=== PATIENT | female | born 1945 | race Caucasian/White ===

== ENCOUNTER 2017-05-14 10:49 | Observation (INO) ==
[2017-05-14] MEDS ORDERED: Aspirin 81 MG TAB.CHEW PO STA (11:30)
--- NOTE | 2017-05-14 11:30 | Emergency Department Note ---
Disposition Clinical Impression: Chest pain Qualifiers: Chest pain type: unspecified Qualified Code(s): R07.9 - Chest pain, unspecified Disposition: Home, Self-Care Condition: Good Time of Disposition: 14:02 Chest Pain HPI - General Chief Complaint: ED Chest Pain Stated Complaint: chest pain Time Seen by Provider: 05/14/17 11:01 Source: patient Limitations: no limitations Vital Signs Reviewed: Yes Nursing Notes Reviewed: Yes - History of Present Illness HPI Narrative: 72-year-old female history of hypertension, hyperlipidemia, rheumatoid arthritis on Methotrexate and Steroids presents to the ED for chest pressure. This started while at rest 0 700 this morning. Located midsternum with radiation down the left arm. She denies any diaphoresis, nausea or vomiting. She is typically short breath denies any worsening. States she is had similar episodes in the past roughly 4 years ago or so where she was prescribed nitro in every time she had subsequent episodes they resolved. She denies any history of stent placement. At the moment patient reports resolution of all symptoms. States it lasted about an hour not have upon onset but she called her physician at [facility] and was told the company for further evaluation. She denies any other complaints such as fever, cough, rhinorrhea, abdominal pain, urinary symptoms. She has some baseline swelling in her legs but denies any increase or unilateral swelling. She makes frequent trips to [facility] as they evaluate her for her anemia and autoimmune disease. She denies any history of blood clots or cancer. Denies history of malignancy or recent surgery. She was recently hospitalized at the [facility] where she will be undergoing a liver biopsy this . Pt complaint: chest pain Severity scale (1-10): 0 - Related Data Home Medications Medication Instructions Recorded Confirmed Hydroxychloroquine [Plaquenuil] 200 mg PO BID 07/18/15 05/14/17 Multivitamin [Multivitamins] 1 tab PO DAILY 07/18/15 05/14/17 Ferrous Sulfate [Iron] 325 mg PO TID 12/14/16 05/14/17 Folic Acid 3 mg PO DAILY 12/14/16 05/14/17 Gabapentin [Neurontin] 600 mg PO BID 12/14/16 05/14/17 Lisinopril [Zestril] 5 mg PO DAILY 12/14/16 05/14/17 Aspirin [Lo-Dose Aspirin EC] 81 mg PO DAILY 12/26/16 05/14/17 Cyanocobalamin (Vitamin B-12) 1,000 mcg PO DAILY 12/26/16 05/14/17 [Vitamin B12] Simvastatin [Zocor] 40 mg PO HS 12/26/16 05/14/17 Acetaminophen [Tylenol] 650 mg PO Q6H PRN 05/14/17 05/14/17 Alendronate Sodium [Alendronate 70 mg PO QWEEK 05/14/17 05/14/17 Sodium] Atorvastatin [Lipitor] 40 mg PO DAILY 05/14/17 05/14/17 Docusate Sodium [Dok] 100 mg PO BID 05/14/17 05/14/17 Methotrexate [Otrexup] 15 mg PO QWEEK 05/14/17 05/14/17 PredniSONE [Deltasone] See Taper PO TAPER 05/14/17 05/14/17 Sennosides [Senna] 8.6 mg PO BID PRN 05/14/17 05/14/17 Tramadol HCl [Ultram] 50 mg PO Q8H PRN 05/14/17 05/14/17 Vitamin B Complex [B Complex] 1 tab PO DAILY 05/14/17 05/14/17 Allergies Allergy/AdvReac Type Severity Reaction Status Date / Time Sulfa (Sulfonamide AdvReac Rash Verified 05/14/17 13:19 Antibiotics) All systems ED: reviewed and negative except as stated. Review of Systems: As Per HPI Constitutional: Denies: fever, chills ENT ED: Denies: congestion, dysphagia Cardiovascular: Reports: chest pain. Denies: dyspnea on exertion Respiratory: Reports: dyspnea. Denies: cough, hemoptysis Gastrointestinal: Denies: abdominal pain, nausea, vomiting Genitourinary: Denies: urgency, dysuria Musculoskeletal: Denies: back pain, neck pain Integumentary: Denies: rash, abrasion, lesions Neurological: Denies: headache Psychiatric: Denies: anxiety, depression Chest Pain PMH - Past Medical History Medical history: Reports: hyperlipidemia, hypertension, RA, other Surgical history: Reports: cataract, knee replacement, orthopedic, other, other Psychiatric history: Reports: no psych history - Social History Smoking Status: Former smoker Alcohol use: Reports: none Drug use: Reports: none Physical Exam - General Limitations: no limitations General appearance: alert, in no apparent distress - Head Head exam: atraumatic, normocephalic, normal inspection - Eye Eye exam: Present: normal appearance, PERRL, EOMI - ENT ENT exam: normal exam, normal oropharynx, mucous membranes moist - Neck Neck exam: Present: normal inspection, full ROM, trachea midline - Chest Chest inspection: Present: normal inspection, symmetric chest wall rise. Absent : tenderness - Respiratory Respiratory exam: Present: normal lung sounds bilaterally. Absent: respiratory distress, wheezes - Cardiovascular Cardiovascular exam: Present: regular rate, normal rhythm, normal heart sounds. Absent: systolic murmur, diastolic murmur - Abdominal Exam Abdominal exam: Present: soft, Non-Tender, normal bowel sounds. Absent: tenderness, distention, guarding, rebound, rigidity - Extremities Exam Extremities exam: Present: normal inspection, full ROM, normal capillary refill , pedal edema (nonpitting, symmetrical). Absent: tenderness, calf tenderness - Back Exam Back exam: Present: normal inspection, full ROM. Absent: tenderness, CVA tenderness (R), CVA tenderness (L) - Neurological Exam Neurological exam: Present: alert, oriented X3 - Psychiatric Psychiatric exam: Present: normal affect, normal mood - Skin Skin exam: Present: warm, dry, intact, normal color. Absent: rash, cyanosis, diaphoresis Course - Reevaluation(s) Reevaluation #1: EKG does not show any acute ischemic changes. It is an abnormal EKG. She denies any chest pain at this time or during this entire visit. Her initial troponin was 0.01. Repeat troponin after 4 hours was 0. Given her recent normal stress tests and echocardiogram in conjunction with the job forwarder she will be stable for discharge home with outpatient follow-up. She is comfortable with this plan. She will follow up with [facility] for further evaluation. Impression is chest pain. Time: 16:58 Reevaluation #2: Since the patient was initially admitted to this service, unable to print appropriate discharge instructions. I spoke to her and with the in the room on instructions to return with follow-up here [facility]. I did attempt to handwrite instructions which included phone number and address for [facility] as well as return precautions. - Consultations Consultation #1: Spoke with on-call hospitalist fausto Scott to admit for chest pain rule out ACS. No further orders at this time. He is aware that the patient refused the aspirin as she is scheduled for liver biopsy this coming . Okay to await stress tests prior to administration. Patient remains chest pain free at this time. Time: 14:02 Consultation #2: Patient was admitted for chest pain evaluation. The hospitalist Daniela called back reviewing her stress tests in conjunction with a job forwarder Dr. Mancia. Because this was recently done within the last 12 months would not recommend any further imaging are testing if she was admitted. They believed she would be appropriate for outpatient follow-up. He did recommend repeating a troponin within 4 hours and if elevated then reconsider admission if normal she can continue with outpatient follow-up. I discussed the plan with the family as well as the patient in a are comfortable and are in agreement with this plan. We will repeat a troponin at 1528. Okay to withhold the aspirin at this time. Time: 14:39 Vital Signs Temperature 97.7 F 05/14/17 10:50 Pulse Rate 82 05/14/17 10:50 Respiratory Rate 18 05/14/17 10:50 Blood Pressure 153/88 05/14/17 10:50 O2 Sat by Pulse Oximetry 99 05/14/17 10:50 Temperature 97.7 F 05/14/17 10:50 Pulse Rate 64 05/14/17 14:55 Respiratory Rate 16 05/14/17 14:55 Blood Pressure 137/108 05/14/17 14:55 O2 Sat by Pulse Oximetry 99 05/14/17 14:55 Oxygen Delivery Oxygen Delivery Room Air Chest Pain - MDM Narrative Medical decision making narrative: Patient was discussed with my attending physician who agrees with ED management and final disposition. They independently evaluated the patient. Please refer to their attestation to this encounter for additional information. This note was generated by [employer] voice recognition software and as a result grammatical or spelling errors may occur using this program. - Medical Records Medical records reviewed: Yes I reviewed the patient's medical records. - Lab Data Lab results reviewed: Yes I reviewed the patient's lab results. Result diagrams: 05/14/17 11:28 05/14/17 11:28 Lab Results 05/14/17 05/14/17 05/14/17 Range/Units 11:28 11:28 11:28 WBC 12.8 H (4.3-11.1) K/mcL RBC 3.85 (3.82-4.97) M/mcL Hgb 11.1 L (11.5-15.4) g/dL Hct 35.4 (35.3-44.9) % MCV 91.9 (83.0-100.0) fL MCH 28.8 (28.0-33.3) pg MCHC 31.4 L (31.6-35.5) g/dL RDW 19.8 H (11.5-14.5) % Plt Count 206 (140-400) K/mcL MPV 10.2 (9.4-12.4) fL Immature Gran % 2.4 (0-4) % Seg Neutrophils % 84.7 % Lymphocytes % 10.0 % Monocytes % 2.7 % Eosinophils % 0.0 % Basophils % 0.2 % Neutrophils # 10.8 H (1.6-8.9) K/mcL Lymphocytes # 1.3 (0.6-4.6) K/mcL Monocytes # 0.3 (0.0-1.3) K/mcL Eosinophils # 0.0 (0.0-0.6) K/mcL Basophils # 0.0 (0.0-0.2) K/mcL Immature Plt Fraction 3.5 (1.1-6.1) % Sodium 142 (136-145) mEq/L Potassium 3.8 (3.5-4.5) mEq/L Chloride 109 (98-109) mEq/L Carbon Dioxide 23 (19-29) mEq/L BUN 28 H (7-20) mg/dL Creatinine 1.06 (0.57-1.11) mg/dL Est GFR ( Amer) > 60 (> 60) Est GFR (Non-Af Amer) 51 L (> 60) BUN/Creatinine Ratio 26 (6-26) Glucose 106 H (70-99) mg/dL Calculated Osmolality 300 (280-300) Calcium 10.1 (8.6-10.8) mg/dL Troponin I 0.01 (0-0.03) ng/mL - Radiology Data Radiology results reviewed: Yes I reviewed the patient's radiology results. Chest X-Ray 05/14/17 11:04 IMPRESSION: No acute process. D/ / Mike Fontaine MD / Mike Fontaine MD Interpreting Provider: Mike Fontaine MD Chest CTA 05/14/17 11:28 IMPRESSION: No evidence of pulmonary embolism or acute pulmonary abnormality. D/ / Mike Fontaine MD / Mike Fontaine MD Interpreting Provider: Mike Fontaine MD - EKG Data EKG attestation: Yes I reviewed and interpreted this EKG. EKG results narrative: EKG performed 1058 normal sinus rhythm 71. Per minute, left axis deviation, no ST elevation or depression, no T wave inversion, poor R wave progression, intervals are within normal limits. There is no old EKG available for comparison. No acute ischemic changes. This is an abnormal EKG. Heart Score - Score History: Slightly Suspicious EKG: Non Specific repolarisation Disturbance Age: Greater than 65 Risk Factors: Equal/Greater than 3 risk factor or history of atherosclerotic disease Troponin: Less than normal limit HEART Score Total: 5 Attestation Statement - Attestation Attestation: Patient was seen with resident physician. I reviewed the history, physical, assessment and plan, and agree with the findings. I also personally evaluated this patient and had [id number] time with this patient. 72-year-old female presents emergency part with chest pain. Patient states she has had chest heaviness several times over the last week or so and more prominently this morning were lasted for approximately an hour. Pain radiates to the left arm Mild shortness of breath without diaphoresis associated with this. To the [facility] for autoimmune disorders on heavy doses steroids and frequently travels to [place] for visits. On exam vital signs are stable. ENT is unremarkable. Heart and lungs normal. Abdomen is soft and nontender. Extremities unremarkable. Neurologically intact. ED course we will do workup for chest pain, and also rule out a PE considering the patient's history of steroid use. We will anticipate dispositioning to the hospitalist service for further workup for chest pain. Hemodynamically she remained stable while in the emergency department. Initial workup was negative troponin was negative. We called both the hospital service and cardiology to determine disposition. Collectively the decision was made to repeat a 4 hour troponin if negative a week and disposition home because the patient's had a recent negative stress test. Patient was comfortable this plan and a repeat troponin was negative. As such we will disposition to home she can follow with cardiology and return if her symptoms worsen. Agree with the resident physician assessment and plan.
[2017-05-14 11:37] LABS: Basophils % 0.2 %; Hematocrit 35.4 % (35.3-44.9); Hemoglobin 11.1 g/dL (11.5-15.4); Immature Granulocytes % 2.4 % (0-4); Immature Platelets 3.5 % (1.1-6.1); Lymphocytes # 1.3 K/mcL (0.6-4.6); Mean Corpuscular HGB Conc 31.4 g/dL (31.6-35.5); Mean Corpuscular Hemoglobin 28.8 pg (28.0-33.3); Mean Corpuscular Volume 91.9 fL (83.0-100.0); Mean Platelet Volume 10.2 fL (9.4-12.4); Monocytes # 0.3 K/mcL (0.0-1.3); Monocytes % 2.7 %; Neutrophils # 10.8 K/mcL (1.6-8.9); Platelet Count 206 K/mcL (140-400); Red Blood Count 3.85 M/mcL (3.82-4.97); Red Cell Distribution Width 19.8 % (11.5-14.5); Segmented Neutrophils % 84.7 %
[2017-05-14 11:50] LABS: BUN/Creatinine Ratio 26 (6-26); Blood Urea Nitrogen 28 mg/dL (7-20); Calcium 10.1 mg/dL (8.6-10.8); Carbon Dioxide 23 mEq/L (19-29); Chloride 109 mEq/L (98-109); Glucose 106 mg/dL (70-99); Osmolality,Calculated 300 (280-300); Potassium 3.8 mEq/L (3.5-4.5); Sodium 142 mEq/L (136-145); eGFR For African Americans > 60 (> 60); eGFR For Non-African Americans 51 (> 60)
--- NOTE | 2017-05-15 09:55 | Electrocardiograph Report ---
[place] [id number] Test Date: 2017-05-14 Pat Name: Lorrie Purcell Department: 102 Room: 3B14 Gender: F Switch Adjuster: Socrates : 1945 Requested By: Eduardo Manzo Order Number: [id number] Reading MD: John Prince MD Measurements Intervals [place] Rate: 71 P: 23 TN: 168 QRS: -39 QRSD: 102 T: -2 QT: 371 QTc: 394 Interpretive Statements SINUS RHYTHM MARKED LEFT AXIS DEVIATION [QRS AXIS < -30] PATTERN CONSISTENT WITH PULMONARY DISEASE Electronically Signed On 05-15-2017 9:31:22 EST by John Prince MD
== END 2017-05-14 14:41 | disposition home or self-care (01) ==
LOC: 3BNU 10:49 → EMEROO 10:49 → 3BNU 18:00
PROVIDERS: ADMIT Internal Medicine Cardiovascular Disease; ATTEND Registered Nurse

== ENCOUNTER 2017-12-01 06:23 | Inpatient (IN) ==
[2017-12-01] MEDS ORDERED: CeFAZolin Syr 2,000MG/20 ML 2,000 MG/20 ML SYRINGE IVPB ONE (06:33)
[2017-12-01] MEDS ORDERED: Ringers Solution, Lactated 1,000 ML IVC SCH ×2 (06:45→11:00)
[2017-12-01] MEDS ORDERED: Ondansetron 4 MG/2 ML VIAL ONE (07:03)
[2017-12-01] MEDS ORDERED: *HR* Succinylcholine 200 MG/10 ML VIAL IVP ONE (07:03)
[2017-12-01] MEDS ORDERED: *HR* FentaNYL (PF) 100 MCG/2 ML VIAL ONE (07:03)
[2017-12-01] MEDS ORDERED: *HR* Rocuronium Bromide 50 MG/5 ML VIAL ONE (07:03)
[2017-12-01] MEDS ORDERED: Lidocaine -MPF 2% 2 ML VIAL ONE (07:03)
[2017-12-01] MEDS ORDERED: Dexamethasone 4 MG/ML VIAL ONE (07:03)
[2017-12-01] MEDS ORDERED: *HR* Midazolam HCl 2 MG/2 ML VIAL ONE (07:03)
[2017-12-01] MEDS ORDERED: Lidocaine -MPF 4% 5 ML AMPUL ONE (07:03)
[2017-12-01] MEDS ORDERED: *HR* Propofol 200 MG/20 ML VIAL IVP ONE (07:03)
--- NOTE | 2017-12-01 07:05 | History & Physical Report ---
Date of Encounter: 12/01/17 Time of Encounter: 07:04 24 Hour HP Update - Instructions Instructions: If the History and Physical is less than 30 days old and was completed prior to A.M. admission and or procedure and has NOT been updated on calendar day of procedure please complete this update prior to performing procedure. - Update Patient reports changes in Medical Condition: No Changes in examination, assessment, or condition: No Changes in Medication: No Preop tests/diagnostics Reviewed: Yes Surgery Remains Indicated: Yes Consent for Planned Operative Procedure(s) Verified: Yes
[2017-12-01] MEDS ORDERED: Ethanol\\Acetic Acid\\Na Ace\\Ben 1,000 ML IRRIG.SOLN IR ONE (07:15)
--- NOTE | 2017-12-01 07:17 | Anesthesia Evaluation PreOp ---
Date of Encounter: 12/01/17 Time of Encounter: 07:14 - Past History Planned Operation: Right reverse total shoulder Cardiac History: HTN, Hyperlipidemia Pulmonary History: Former smoker (quit 30 years ago), WEA Dx (she cannot tolerate CPAP; mild), Other (interstitial lung disease - does not require treatment) LITIGATION DOCKET MANAGER History: Denies Any Significant HX Other Medical History: GERD, Other (Rheumatoid arthritis, on prednisone 2.5 mg daily for 6 months for anemia (stopped this medication three days ago)) Anesthesia History: No Prior Anesthetic Complications Alcohol Use: none Drug use: none Medications and Allergies Gabapentin [Neurontin] 600 mg PO BID 12/14/16 [History] Lisinopril [Zestril] 5 mg PO DAILY 12/14/16 [History] Simvastatin [Zocor] 40 mg PO HS 12/26/16 [History] Methotrexate [Otrexup] 2.5 mg PO QWEEK 12/01/17 [History] PredniSONE [Amari] 2.5 mg PO DAILY 12/01/17 [History] 3 Allergy/AdvReac Type Severity Reaction Status Date / Time Sulfa (Sulfonamide AdvReac Rash Verified 05/14/17 13:19 Antibiotics) - Meds/Allergy Pre-op Review Medications Reviewed: Yes Allergies Reviewed: Yes Beta Blockers on Current Med List: No Anesthesia Results - Labs Laboratory Tests 11/20/17 11/27/17 11/27/17 11:15 08:41 08:41 WBC 5.8 Hgb 11.2 L Hct 33.9 L Plt Count 182 PT 11.5 INR 1.1 APTT 28.6 Sodium 142 Potassium 4.1 Chloride 107 Carbon Dioxide 28 BUN 24 H Creatinine 1.22 H Est GFR ( Amer) 53 L Est GFR (Non-Af Amer) 43 L BUN/Creatinine Ratio 20 Glucose 109 H - Imaging EKG: report reviewed, image reviewed (SINUS RHYTHM MARKED LEFT AXIS DEVIATION [ QRS AXIS < -30] PATTERN CONSISTENT WITH PULMONARY DISEASE) Additional studies: TTE: EV/EV echocardiogram Impressions: LVEF 60-65%. Normal LV chamber size, wall thickness and function. Mild left ventricular diastolic dysfunction. Normal right ventricular structure and function. Mild tricuspid regurgitation. No evidence of pulmonary hypertension. Anesthesia Exam Last Vital Signs Temp 97.8 F 12/01/17 06:43 Pulse 76 12/01/17 06:43 Resp 18 12/01/17 06:43 BP 117/61 12/01/17 06:43 Pulse Ox 98 12/01/17 06:43 Weight: 94 kg NPO (# of Hours): > 8 hrs - HEENT Pupil (Motor): Pupils equal, EOMI Mallampati: III Teeth: Normal Oral Opening: Greater than 3 - LITIGATION DOCKET MANAGER LOC: Oriented - Cardiac Rhythm: Regular Murmur: None - Pulmonary Breath Sounds: bilateral Clear Respiratory Effort: Symmetrical Anesthesia Assess/Plan ASA Score: 3 Modified Purvis Scale for Level of Consciousness: Cooperative, oriented, and tranquil Anesthetic Plan: General, Regional Monitoring Plan: Standard Monitors Recovery Plan: PACU
[2017-12-01] MEDS ORDERED: ROPIVACAINE HCL/PF 0.5% 30 ML VIAL ONE (07:23)
[2017-12-01] MEDS ORDERED: Bupivacaine/Clonidine Syringe 1 EACH SYRINGE ONE (07:23)
[2017-12-01] MEDS ORDERED: Tranexamic Acid 1,000 MG/10 ML VIAL ONE (07:50)
[2017-12-01] MEDS ORDERED: *HR* PHENYLEPHRINE 1,000 MCG/10 ML SYRINGE IVP ONE (08:07)
[2017-12-01] MEDS ORDERED: EPHEDrine 50 MG/ML VIAL ONE (08:13)
[2017-12-01] MEDS ORDERED: Vancomycin 1,000 MG VIAL ONE (08:22)
[2017-12-01] MEDS ORDERED: *HR* Vasopressin 20 UNIT/ML VIAL ONE (08:36)
--- NOTE | 2017-12-01 08:56 | Anesthesia Procedures ---
Date of Encounter: 12/01/17 Time of Encounter: 07:30 Procedures: Anesthesia - Nerve Block Procedure Date: 12/01/17 Time: 07:30 Allergies/Adv Reactions: sulfa Pre-op Diagnosis: right shoulder athropathy Surgical Procedure: total Checklist: Correct Patient Identifier, Correct procedure, History checked Correct side: Right Blood Thinner: No Monitor Applied: EKG, BP, Pulse Oximetry Supplemental Oxygen via Nasal Cannula (L/min): 2 Sedation: Versed (mg): 1 Sedation: Fentanyl (mcg): 50 Indication: Post Op Analgesia Pre-op Neuro Deficits: No Block Type: Supraclavicular Sterile Technique: Yes Ultrasound used: Yes Anatomy identified: Yes Visual spread of Local: Yes Neuro Stimulation: No Blood on Needle Aspiration: No Smooth Injection of Local: Yes Pain with Injection of Local: No Prep: Chlorhexadine Needle: 22 x 50 mm Stimuplex Local: 0.25% Bupivicaine w/Clonidine 20 mcg/cc (10cc for superficial cervical plexus), Ropivacaine (30cc for plexus block) Number of Attempts: 1 Complications: None/effective block Vitals: Vital Signs/O2 Sat, Most Current Temp Pulse Resp BP Pulse Ox 97.8 F 72 18 118/57 100 12/01/17 06:43 12/01/17 07:42 12/01/17 06:43 12/01/17 07:42 12/01/17 07:42 Comments: Assist per Dr Sabillon
[2017-12-01] MEDS ORDERED: *HR* Promethazine 25 MG/ML VIAL IVP PRN (08:58)
[2017-12-01] MEDS ORDERED: *HR* FentaNYL (PF) 100 MCG/2 ML VIAL IVP PRN (08:58)
[2017-12-01] MEDS ORDERED: Ondansetron 4 MG/2 ML VIAL IVP ONE (08:58)
[2017-12-01] MEDS ORDERED: *HR* OxyCODONE Immed Rel 5 MG TABLET PO PRN ×2 (08:58→11:00)
[2017-12-01] MEDS ORDERED: MORPHINE SUL Oral CONC 10 MG/0.5 ML ORAL.SYG SL PRN (08:58)
[2017-12-01] MEDS ORDERED: Neostigmine Methylsulfate 3 MG/3 ML SYRINGE ONE (09:11)
--- NOTE | 2017-12-01 09:54 | Orthopedic Operative Note ---
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 Radiographs and CT scan showed glenohumeral arthritis with significant.posteriorsuperior wear pattern of the glenoid. MRI showed significant full thickness retracted tear of the supraspinatus which followed a rotator cuff repair done about 12 years ago. The patient has failed conservative treatment including anti-inflammatories and therapy and has elected to proceed with a right reverse shoulder replacement. The risks and benefits of the procedure were fully explained to the patient. These risks include, but are not limited to, the risk of infection, neurovascular injury, continued pain and stiffness of the shoulder, need for further surgery, DVT, PE, loss of limb and loss of life. The patient did understand all of these risks and wishes to proceed. Informed consent was then obtained. Operative procedure: The patient was brought back to the OR suite by the anesthesia staff. The patient was then placed supine on the operating table and all bony prominences were padded. The anesthesiologist then performed successful general anesthetic for the remainder of the case. The head, neck and airway were secured and protected by anesthesia. The bed was elevated about 30 degrees. The right upper extremity was then prepped and draped in the normal sterile orthopedic fashion and placed in the Trimano arm dick. Preoperative antibiotics were then given prior to incision. A timeout was performed confirming the correct patient, site and side, procedure to be performed and any allergies. All were in agreement and we did proceed. A standard deltopectoral approach was performed. We dissected down through the skin coagulating any bleeders were encountered. The cephalic vein was then identified and taken laterally with the deltoid. Adhesions were cleared from underneath the deltoid and a brown retractor was placed. The interval between the deltoid and pectoralis was then developed and kolbel retractor was placed. A Darrach retractor was then placed under the acromion. The biceps tendon was exposed and identified, and then released proximally. Soft tissue tenodesis of the remaining biceps was then performed. The lateral border of the conjoined tendon was then identified and a subscapularis release was performed. The subscapularis was tagged and was released from the rotator interval down the anterior aspect of the humerus. The capsule was then released from the anterior aspect of the humerus around inferiorly to the back of the humerus. The humerus was subluxed anteriorly and osteophytes were removed. There was a full thickness supraspinatus tear with associated degenerative changes of the humeral head. A humeral osteotomy was then performed, and the humerus was sounded and broached to the appropriate size. Attention was then turned to the glenoid. The humerus was subluxed posteriorly and retractors were placed on the anterior and posterior aspects of the glenoid. A 360 degree release of the subscapularis was performed, and the axillary nerve was palpated and protected throughout the case. Labral debridement was then performed. There was a posterior superior wear pattern on the glenoid so we did proceed with a wedged baseplate component. A central guide pin was placed in the appropriate position on the glenoid. The paleo and josemanuel glenoid were then sequentially reamed in accordance with the wedged system. The central screw hole was drilled and trial baseplate was used to ensure good circumferential contact on the glenoid. The final glenoid baseplate was screwed in place and 4 peripheral drill holes were drilled and filled with the appropriate length screws. The final glenosphere was then impacted and the glenoid sphere screw was tightened in place. Attention was turned back to the humerus. The humerus was subluxed back anteriorly and a trial humeral stem, tray and poly trials were placed. Trial humeral reverse trays and poly were then placed sequentially until the most appropriate size was identified. The trial size +6 mm poly with +0 tray was tested and had excellent range of motion, and stability was verified. The final component was assembled on the back table and then inserted, and the shoulder was reduced. Again the shoulder was taken through range of motion and there was excellent range of motion and stability. The wound was then copiously irrigated. The deltopectoral interval was tagged with 2-0 surgilon, and the incision was closed with 2-0 stratafix deep and a running 3-0 stratafix subcuticular. Sterile dressing was placed, the arm was placed in a sling and the patient was taken to the PACU in stable condition. There were no complications during the case. Post op plan: The patient will go into the reverse shoulder protocol. Was there an topographical field assistant present: No Estimated blood loss (cc): 100
--- NOTE | 2017-12-01 10:46 | Anesthesia Evaluation Post Op ---
Date of Encounter: 12/01/17 Time of Encounter: 10:45 - Vital Signs Vital Signs: Last Vital Signs Temp 97.7 F 12/01/17 10:42 Pulse 82 12/01/17 10:42 Resp 13 12/01/17 10:42 BP 98/45 12/01/17 10:42 Pulse Ox 95 12/01/17 10:42 - Lungs Lungs: Clear Ascult./Percussion - Airway Airway: Non-obstructed - Cardiovascular Regular Rate - Mental Status Mental Status: Alert & Oriented, Answers Appropriately - Pain Pain Scale: 1 - Nausea Vomiting Nausea Vomiting: Not Present - Hydration Hydration: NPO - Discharge PostOp Status: Transfer Patient to floor
[2017-12-01] MEDS ORDERED: Ketorolac 15 MG/ML VIAL IVP PRN (11:00)
[2017-12-01] MEDS ORDERED: Ondansetron 4 MG/2 ML VIAL IVP PRN (11:00)
[2017-12-01] MEDS ORDERED: traMADol 50 MG TABLET PO PRN (11:00)
[2017-12-01] MEDS ORDERED: Sennosides 8.6 MG TABLET PO PRN (11:00)
[2017-12-01] MEDS ORDERED: MOM Conc 10 ML UD.LIQ PO PRN (11:00)
[2017-12-01] MEDS ORDERED: Temazepam 15 MG CAPSULE PO PRN (11:00)
[2017-12-01] MEDS ORDERED: Naloxone 0.4 MG/ML INJ IVP PRN (11:00)
[2017-12-01] MEDS ORDERED: *HR* OxyCODONE/APAP 5/325 TABLET PO PRN (11:00)
--- NOTE | 2017-12-01 12:24 | Discharge Summary ---
Orders not resulted at time of discharge: Pending orders 12/01/17 07:31 US anesthesia pain block [US] Stat 12/01/17 09:22 Surgical Pathology [PTH] Routine 12/02/17 04:00 Hemoglobin and Hematocrit [HEME] AM 0400 12/03/17 04:00 Hemoglobin and Hematocrit [HEME] AM 0400 Date of Encounter: 12/01/17 Time of Encounter: 14:44 - Discharge Diagnosis (1) S/P shoulder joint replacement Priority: Primary Status: Acute Qualifiers: Laterality: right Qualified Code(s): Z96.611 - Presence of right artificial shoulder joint - Hospital Course Hospital course: Ms. Purcell is a 72 year old female admitted to the floor following a right reverse total shoulder arthroplasty. She did well postoperatively and was able to be discharged in stable condition to home later that afternoon after passing physical therapy. Outpatient PT and followup have been arranged. - Time Spent with Patient Total time spent providing and/or coordinating discharge services: - Discharge Medications Home Medications: Gabapentin [Neurontin] 600 mg PO BID 12/14/16 [History] Lisinopril [Zestril] 5 mg PO DAILY 12/14/16 [History] Simvastatin [Zocor] 40 mg PO HS 12/26/16 [History] Methotrexate [Otrexup] 2.5 mg PO QWEEK 12/01/17 [History] PredniSONE [Amari] 2.5 mg PO DAILY 12/01/17 [History] Allergies/Adverse Reactions: 3 Allergy/AdvReac Type Severity Reaction Status Date / Time Sulfa (Sulfonamide AdvReac Rash Verified 05/14/17 13:19 Antibiotics) Date of admission: 12/01/17 10:57 Primary care physician: Damaris Conteh Consults: 12/01/17 11:00 Consult to Occupational Therapy [CONS] Routine Comment: post shoulder surgery Reason for Consult: post shoulder surgery Does patient have active BEDREST order?: No Is patient medically & hemodynamically stable?: Yes Consult to Physical Therapy [CONS] Routine Comment: post shoulder surgery Reason for Consult: post shoulder surgery Does patient have active BEDREST order?: No Is patient medically & hemodynamically stable?: Yes RT Post Op Consult [CONS] Routine - VTE Documentation of Mechanical Device: Intermittent pneumatic compression device - Impressions ITS Impressions Shoulder X-Ray 12/01/17 09:34 IMPRESSION: Unremarkable right shoulder following reverse shoulder arthroplasty. D/ / Earl Mckeon MD / Earl Mckeon MD Interpreting Provider: Earl Mckeon MD - Patient Status Disposition: Home, Self-Care Condition: Good Functional capacity at discharge: independent ambulation Overall status at discharge: patient is progressing back to baseline - Discharge Instructions Follow Up With: Damaris Conteh MD [Primary Care Provider] - Additional Instructions: DISCHARGE INSTRUCTIONS Dr. Chávez Shoulder Replacement Wound Care -Keep wound / incision area clean and dry. -Keep the clear dressing on until follow up. -No baths or swimming until otherwise instructed. -Keep the wound dry until follow up. No submerging the wound under standing water until cleared by your physician (no baths, hot tubs, swimming pools, etc) . Sponge baths are the best way to perform personal hygiene while at the same time protecting the wound from moisture. -No scrubbing the wound. You may "pad dry" the wound, but do not rub, as this may open up he wound and pre-dispose to wound infection. -Do not apply lotions or creams to incision site, unless instructed otherwise. -Observe for redness, swelling, or drainage. Please call the clinic immediately if you have fevers, chills with warmth/redness surrounding wound site or if you notice pus drainage from the wound site Activity -Continue the sling and come out for exercises as instructed by the physical therapist. Further therapy instructions will be given at your first follow up appointment. -No driving while on narcotic pain medication. Discharge Pain Medications -You will be given a prescription for pain medication. Wean off as tolerated. Do not wait to take the pain medication until the pain is severe, as it will be difficult to "catch up" once this occurs. The pain medication usually reaches its full effect ~1 hour after ingesting. -Your prescribed pain medication may contain Tylenol. You must be careful not to exceed 4,000 mg (4 g) of Tylenol (or generic equivalent), from all sources, within a single 24-hour period. -Some common side effects of the narcotic pain medications (Percocet, Oxycodone , Vicodin, etc) include nausea and itching. Benadryl is a great over the counter medication that helps calm your stomach, decreases your anxiety levels, and minimizes the itching. You can easily purchase this at your local pharmacy as an [id number] medication. Please abide by the instructions as printed on t-he bottle. If your nausea persists, make sure to take small amounts of crackers or other water/wastewater project manager foods. - Diet and Activity Activity: as per physical therapy Diet: advance to your usual diet
[2017-12-01 15:43] VITALS: BP 114/73
[2017-12-01] MEDS ORDERED: Gabapentin 300 MG CAPSULE PO SCH (21:00)
[2017-12-02] MEDS ORDERED: predniSONE 5 MG TABLET PO SCH (09:00)
[2017-12-02] MEDS ORDERED: Aspirin Enteric Coated 325 MG Tablet PO SCH (09:42)
== END 2017-12-01 16:15 | disposition home or self-care (01) | DRG 483 ==
LOC: SAMDAY 06:23 → 3NENU 10:57
PROVIDERS: ADMIT Orthopaedic Surgery Sports Medicine; ATTEND Orthopaedic Surgery Sports Medicine

== ENCOUNTER 2018-06-04 16:30 | Inpatient (IN) ==
[2018-06-04] MEDS ORDERED: Isovue-370 500 ML INFUS..BTL IV ONE (16:52)
--- NOTE | 2018-06-04 16:58 | Emergency Department Note ---
Disposition Clinical Impression: Left leg pain, Left leg paresthesias, Left hip pain, RUDDY (acute kidney injury) Disposition: Admitted As Inpatient Forms: ED Satisfaction Letter General Adult HPI - General Chief complaint: ED Extremity Injury, Lower Stated complaint: LLE numbness 1 hour ago Time Seen by Provider: 06/04/18 16:43 - History of Present Illness Pain Scale: 0 - Related Data Home Medications Medication Instructions Recorded Confirmed Gabapentin [Neurontin] 600 mg PO BID 12/14/16 03/19/18 Lisinopril [Zestril] 5 mg PO DAILY 12/14/16 03/19/18 Simvastatin [Zocor] 40 mg PO HS 12/26/16 03/19/18 Methotrexate [Otrexup] 15 mg PO QWEEK 12/01/17 03/19/18 PredniSONE [Amari] 7.5 mg PO DAILY 12/01/17 03/19/18 Calcium Carbonate/Vitamin D3 1 each PO DAILY 02/12/18 03/19/18 [Calcium 600 + Vit D Tablet] Ergocalciferol (VITAMIN D2) 50,000 unit PO QWEEK 02/12/18 03/19/18 [Vitamin D2] Multivitamin [Multivitamins] 1 each PO DAILY 02/12/18 03/19/18 Acetaminophen [Tylenol] 325 mg PO PRN PRN 03/19/18 03/19/18 Cyanocobalamin (Vitamin B-12) 1,000 mcg PO DAILY 03/19/18 03/19/18 [Vitamin B-12] Folic Acid 1 mg PO BID 03/19/18 03/19/18 Magnesium 250 mg PO DAILY 03/19/18 03/19/18 Allergies Allergy/AdvReac Type Severity Reaction Status Date / Time Sulfa (Sulfonamide AdvReac Rash Verified 03/19/18 15:12 Antibiotics) Past Medical History - Past Medical History Medical history: Reports: hyperlipidemia, hypertension, RA, other Surgical history: Reports: cataract, knee replacement, orthopedic, other, other Psychiatric history: Reports: no psych history - Social History Smoking Status: Former smoker Smokeless Tobacco Status: No Alcohol use: Reports: none Drug use: Reports: none Physical Exam - General General appearance: alert Course - Reevaluation(s) Reevaluation #1: eval done upon arrival CTA ordered within minutes Reevaluation #2: leg has drastically improved now pain almost gone color has improved pulses intact spoke with dr lui in consult admit for obs Vital Signs Temperature 98.7 F 06/04/18 16:35 Pulse Rate 83 06/04/18 16:35 Respiratory Rate 14 06/04/18 16:35 Blood Pressure 94/65 06/04/18 16:35 O2 Sat by Pulse Oximetry 100 06/04/18 16:35 Temperature 98.7 F 06/04/18 16:46 Pulse Rate 83 06/04/18 16:46 Respiratory Rate 14 06/04/18 16:46 Blood Pressure 138/87 06/04/18 16:46 O2 Sat by Pulse Oximetry 100 06/04/18 16:46 Oxygen Delivery Oxygen Delivery Room Air Medical Decision Making - Lab Data Result diagrams: 06/04/18 16:48 06/04/18 16:48 Lab Results 06/04/18 06/04/18 06/04/18 Range/Units 16:48 16:48 16:48 WBC 13.9 H (4.3-11.1) K/mcL RBC 3.58 L (3.82-4.97) M/mcL Hgb 11.9 (11.5-15.4) g/dL Hct 36.6 (35.3-44.9) % MCV 102.2 H (83.0-100.0) fL MCH 33.2 (28.0-33.3) pg MCHC 32.5 (31.6-35.5) g/dL RDW 16.6 H (11.5-14.5) % Plt Count 193 (140-400) K/mcL MPV 11.0 (9.4-12.4) fL Immature Gran % 1.8 (0-4) % Seg Neutrophils % 77.8 % Lymphocytes % 11.9 % Monocytes % 7.3 % Eosinophils % 0.8 % Basophils % 0.4 % Neutrophils # 10.8 H (1.6-8.9) K/mcL Lymphocytes # 1.7 (0.6-4.6) K/mcL Monocytes # 1.0 (0.0-1.3) K/mcL Eosinophils # 0.1 (0.0-0.6) K/mcL Basophils # 0.1 (0.0-0.2) K/mcL PT 11.1 (9.4-12.1) Seconds INR 1.0 APTT 27.4 (26.0-36.0) Seconds Sodium 139 (136-145) mEq/L Potassium 4.2 (3.5-5.1) mEq/L Chloride 106 (98-107) mEq/L Carbon Dioxide 21 L (23-29) mEq/L BUN 26 H (8-23) mg/dL Creatinine 1.68 H (0.60-1.20) mg/dL Est GFR ( Amer) 36 L (> 60) Est GFR (Non-Af Amer) 30 L (> 60) BUN/Creatinine Ratio 15 (6-26) Glucose 118 H (70-105) mg/dL Calculated Osmolality 294 (280-300) Calcium 10.5 H (8.6-10.3) mg/dL Troponin I < 0.03 (< 0.04) ng/mL Critical Care Time Critical Care Time: Yes Total Critical Care Time: 45 Attestation: CC time of 45 min spent in management of acute limb compromise and consultation with vascular surgery Attestation Statement - Attestation Attestation: I examined this patient and my medical decision-making was reviewed with the Resident Physician. I agree with the documented findings, disposition and treatment plan as described except to the extent set forth below. 73-year-old female presented to the emergency room for concerns for pain and numbness involving the left lower extremity. Happened around 3 PM today. States she woke up with some left-sided hip pain. She states as the day went on the pain got more severe. She then felt like her leg was going asleep and felt numb and cold. She has no face or arm complaints. She denies any new chest pain or any new shortness breath. She denies abdominal pain. She states she has chronic low back pain that is not new today. She denies trauma. Upon arrival, patient was seen emergently in trauma room 2. On exam, she has a dusky mottled left leg as compared to her right leg. I was able to Doppler pulses in the dorsalis pedis and posterior tibial region. We did do a quick bedside view with the ultrasound which was concerning for possible clot in the femoral artery. I have ordered an emergent CTA aortogram with runoff to evaluate her vasculature.
[2018-06-04] MEDS ORDERED: 0.9 % Sodium Chloride 1,000 ML IVC ONE (16:59)
--- NOTE | 2018-06-04 17:04 | Emergency Department Note ---
Disposition Clinical Impression: Left leg pain, Left leg paresthesias, Left hip pain, RUDDY (acute kidney injury) Disposition: Admitted As Inpatient Condition: Good Referrals: Damaris Conteh MD [Primary Care Provider] - Forms: ED Satisfaction Letter Lower Extremity Injury HPI - General Chief Complaint: ED Extremity Injury, Lower Stated Complaint: LLE numbness 1 hour ago Time Seen by Provider: 06/04/18 16:43 Nursing Notes Reviewed: Yes Vital Signs Reviewed: Yes - History of Present Illness HPI Narrative: 73-year-old female with past medical history including rheumatoid arthritis, hypertension presenting with chief complaint of left lower extremity numbness for 2 hours. Patient complains of chronic left hip pain. She states her left hip pain was slightly worse than usual today. Around 0 300, the patient developed numbness in her entire left lower extremity. She states half an hour later her entire left foot went completely numb and she could not feel it. She did regain feeling in her foot shortly after. She states her entire leg we will go numb intermittently. She denies any left lower extremity pain. She denies weakness, slurred speech, facial droop, upper extremity paresthesias or weakness. Patient denies history of peripheral arterial disease or deep venous thrombosis. She is not on any anticoagulation. Patient denies chest pain, shortness breath, abdominal pain, nausea, vomiting, blood in her stool. - Related Data Home Medications Medication Instructions Recorded Confirmed Gabapentin [Neurontin] 600 mg PO BID 12/14/16 03/19/18 Lisinopril [Zestril] 5 mg PO DAILY 12/14/16 03/19/18 Simvastatin [Zocor] 40 mg PO HS 12/26/16 03/19/18 Methotrexate [Otrexup] 15 mg PO QWEEK 12/01/17 03/19/18 PredniSONE [Amari] 7.5 mg PO DAILY 12/01/17 03/19/18 Calcium Carbonate/Vitamin D3 1 each PO DAILY 02/12/18 03/19/18 [Calcium 600 + Vit D Tablet] Multivitamin [Multivitamins] 1 each PO DAILY 02/12/18 03/19/18 Acetaminophen [Tylenol] 325 mg PO PRN PRN 03/19/18 03/19/18 Cyanocobalamin (Vitamin B-12) 1,000 mcg PO DAILY 03/19/18 03/19/18 [Vitamin B-12] Folic Acid 1 mg PO BID 03/19/18 03/19/18 Magnesium 250 mg PO DAILY 03/19/18 03/19/18 Allergies Allergy/AdvReac Type Severity Reaction Status Date / Time Sulfa (Sulfonamide AdvReac Rash Verified 03/19/18 15:12 Antibiotics) All systems ED: reviewed and negative except as stated. Review of Systems: As Per HPI Constitutional: Denies: fever, chills Eyes: Denies: vision change ENT ED: Denies: throat pain, dysphagia Cardiovascular: Denies: chest pain, palpitations Respiratory: Denies: cough, dyspnea Gastrointestinal: Denies: abdominal pain, nausea, diarrhea, hematochezia Genitourinary: Denies: dysuria, hematuria Musculoskeletal: Denies: back pain Integumentary: Denies: abrasion Neurological: Reports: numbness, paresthesias. Denies: headache, weakness Past Medical History - Past Medical History Attestation: Yes The following information was validated with the patient. Source: patient Medical history: Reports: hyperlipidemia, hypertension, RA, other Surgical history: Reports: cataract, knee replacement, orthopedic, other, other Psychiatric history: Reports: no psych history - Social History Smoking Status: Former smoker Smokeless Tobacco Status: No Alcohol use: Reports: none Drug use: Reports: none Physical Exam - General Limitations: no limitations General appearance: alert, in no apparent distress - Head Head exam: atraumatic, normocephalic, normal inspection - Eye Eye exam: Present: normal appearance, PERRL, EOMI - ENT ENT exam: normal exam, normal oropharynx, mucous membranes moist - Chest Chest inspection: Present: normal inspection, symmetric chest wall rise - Respiratory Respiratory exam: Present: normal lung sounds bilaterally. Absent: respiratory distress, accessory muscle use - Cardiovascular Cardiovascular exam: Present: regular rate, normal rhythm, normal heart sounds - Abdominal Exam Abdominal exam: Present: soft, Non-Tender. Absent: tenderness, distention, guarding, rebound, rigidity - Extremities Exam Extremities exam: Present: other (Left lower extremity is cold compared to the right lower extremity. There is mottling and dusky color of the entire left lower extremity. Dorsalis pedis and posterior tibialis pulses are palpable. Sensation intact.) - Neurological Exam Neurological exam: Present: alert, oriented X3, CN II-XII intact - Expanded Neurological Exam Patient oriented to: Present: person, place, time Speech: Present: fluid speech Motor strength - LUE: 5/5 Motor strength - RUE: 5/5 Motor strength - LLE: 5/5 Motor strength - RLE: 5/5 Upper motor neuron exam: marcus neglect: Absent bilaterally, pronator drift: Absent bilaterally Sensory exam upper extremity: light touch: Normal Sensory exam lower extremity: light touch: Normal - Psychiatric Psychiatric exam: Present: normal affect, normal mood - Skin Skin exam: Present: dry, other (Left lower extremity is dusky color and mottling. Cold.) Course Vital Signs Temperature 98.7 F 06/04/18 16:35 Pulse Rate 83 06/04/18 16:35 Respiratory Rate 14 06/04/18 16:35 Blood Pressure 94/65 06/04/18 16:35 O2 Sat by Pulse Oximetry 100 06/04/18 16:35 Temperature 98.7 F 06/04/18 16:46 Pulse Rate 83 06/04/18 16:46 Respiratory Rate 14 06/04/18 16:46 Blood Pressure 138/87 06/04/18 16:46 O2 Sat by Pulse Oximetry 100 06/04/18 16:46 Oxygen Delivery Oxygen Delivery Room Air Extremity Injury, Lower - MDM Narrative Medical decision making narrative: Patient has history of rheumatoid arthritis and is on chronic prednisone. She denies history of peripheral arterial disease, DVT, is not on anticoagulation. There is concern for acute ischemia to the left lower extremity. Left lower extremity is cold, dusky, mottled. She does have dorsalis pedis and posterior tibialis pulses present. Low suspicion for cellulitis. Emergent CTA aortagram with runoff ordered to evaluate for acute limb ischemia. We will also evaluate for aortic dissection. She denies chest pain, abdominal pain. WIll also obtain JOSÉ LUIS. 18:30 CXR without acute cardiopulmonary process. No widened mediastinum. CT angiogram aorta with runoff shows no acute arterial obstruction. JOSÉ LUIS is normal. Discussed with Dr. Galloway, vascular surgery. He states the symptoms may be due to a severe vasospasm. Will admit the patient for observation. Hospitalist consulted. Upon reevaluation, the patient's mottling is improved. Left lower extremity is warm. Pulses are still palpable. 19:20 Discussed with hospitalist, Dr. Lance, who accepts admission. Currently the patient is denying any pain, she states the numbness since improved. - Medical Records Medical records reviewed: Yes I reviewed the patient's medical records. - Lab Data Lab results reviewed: Yes I reviewed the patient's lab results. Result diagrams: 06/04/18 16:48 06/04/18 16:48 Lab Results 06/04/18 06/04/18 06/04/18 Range/Units 16:48 16:48 16:48 WBC 13.9 H (4.3-11.1) K/mcL RBC 3.58 L (3.82-4.97) M/mcL Hgb 11.9 (11.5-15.4) g/dL Hct 36.6 (35.3-44.9) % MCV 102.2 H (83.0-100.0) fL MCH 33.2 (28.0-33.3) pg MCHC 32.5 (31.6-35.5) g/dL RDW 16.6 H (11.5-14.5) % Plt Count 193 (140-400) K/mcL MPV 11.0 (9.4-12.4) fL Immature Gran % 1.8 (0-4) % Seg Neutrophils % 77.8 % Lymphocytes % 11.9 % Monocytes % 7.3 % Eosinophils % 0.8 % Basophils % 0.4 % Neutrophils # 10.8 H (1.6-8.9) K/mcL Lymphocytes # 1.7 (0.6-4.6) K/mcL Monocytes # 1.0 (0.0-1.3) K/mcL Eosinophils # 0.1 (0.0-0.6) K/mcL Basophils # 0.1 (0.0-0.2) K/mcL PT 11.1 (9.4-12.1) Seconds INR 1.0 APTT 27.4 (26.0-36.0) Seconds Sodium 139 (136-145) mEq/L Potassium 4.2 (3.5-5.1) mEq/L Chloride 106 (98-107) mEq/L Carbon Dioxide 21 L (23-29) mEq/L BUN 26 H (8-23) mg/dL Creatinine 1.68 H (0.60-1.20) mg/dL Est GFR ( Amer) 36 L (> 60) Est GFR (Non-Af Amer) 30 L (> 60) BUN/Creatinine Ratio 15 (6-26) Glucose 118 H (70-105) mg/dL Calculated Osmolality 294 (280-300) Calcium 10.5 H (8.6-10.3) mg/dL Troponin I < 0.03 (< 0.04) ng/mL - Radiology Data Radiology results reviewed: Yes I reviewed the patient's radiology results. Chest X-Ray 06/04/18 16:39 IMPRESSION: No acute cardiac or pulmonary disease. D/ / Tom Dinero MD / Tom Dinero MD Interpreting Provider: Tom Dinero MD Aorta w/Runoff CTA 06/04/18 16:52 IMPRESSION: The CTA shows no acute arterial abnormality, significant narrowing, aneurysm or dissection. There is decreased arterial enhancement of the mid and distal trifurcation vessels left leg with greater venous structure visualization and moderate fatty infiltration. This may represent cellulitis. Venous insufficiency see also considered. Large cystic lesion at the dome of the liver. D/ / Tom Dinero MD / Tom Dinero MD Interpreting Provider: Tom Dinero MD - EKG Data EKG attestation: Yes I reviewed and interpreted this EKG. EKG results narrative: EKG from today at 1840 with sinus rhythm with heart rate 64. NC interval 176. QRS duration 97. QTc 416. There is no ST elevation or depression. Compared to prior EKG on 05/14/2017. No acute changes.
[2018-06-04 17:31] LABS: Basophils # 0.1 K/mcL (0.0-0.2); Basophils % 0.4 %; Eosinophils # 0.1 K/mcL (0.0-0.6); Eosinophils % 0.8 %; Hematocrit 36.6 % (35.3-44.9); Hemoglobin 11.9 g/dL (11.5-15.4); Immature Granulocytes % 1.8 % (0-4); Lymphocytes # 1.7 K/mcL (0.6-4.6); Lymphocytes % 11.9 %; Mean Corpuscular HGB Conc 32.5 g/dL (31.6-35.5); Mean Corpuscular Hemoglobin 33.2 pg (28.0-33.3); Mean Corpuscular Volume 102.2 fL (83.0-100.0); Monocytes % 7.3 %; Neutrophils # 10.8 K/mcL (1.6-8.9); Platelet Count 193 K/mcL (140-400); Red Blood Count 3.58 M/mcL (3.82-4.97); Red Cell Distribution Width 16.6 % (11.5-14.5); Segmented Neutrophils % 77.8 %
[2018-06-04 17:39] LABS: Prothrombin Time 11.1 Seconds (9.4-12.1)
[2018-06-04 17:41] LABS: Activated Partial Thrombo Time 27.4 Seconds (26.0-36.0)
[2018-06-04 17:55] LABS: BUN/Creatinine Ratio 15 (6-26); Blood Urea Nitrogen 26 mg/dL (8-23); Calcium 10.5 mg/dL (8.6-10.3); Carbon Dioxide 21 mEq/L (23-29); Chloride 106 mEq/L (98-107); Glucose 118 mg/dL (70-105); Osmolality,Calculated 294 (280-300); Potassium 4.2 mEq/L (3.5-5.1); Sodium 139 mEq/L (136-145); Troponin I < 0.03 ng/mL (< 0.04); eGFR For Non-African Americans 30 (> 60)
[2018-06-04] MEDS ORDERED: Naloxone 0.4 MG/ML INJ IVP PRN (21:28)
[2018-06-04] MEDS: 0.9 % Sodium Chloride 1,000 ML IVC SCH (23:22)
--- NOTE | 2018-06-05 05:50 | Internal Med History&Physical ---
Date of Encounter: 06/05/18 Time of Encounter: 05:49 Internal Medicine - H&P: HPI Chief complaint: Left Leg Numbness History of present illness: Ms. Purcell is a 73 year old female with a past medical history of rheumatoid arthritis, hyperlipidemia, sleep apnea, and hypertension who presents to the ED due to complaints of left leg pain and numbness. Patient reports that she has been having pain in her left hip throughout the day. However given her history of arthritis she did not think much of it. However the pain became progressively worse as the day progressed. She contacted her PCP who advised her to come in for evaluation. By the afternoon she noted numbness in the same leg from the knee extending downward. She stated the numbness progressed to the extent that she could no longer feel her toes. She did regain feeling in her foot shortly after arrival to the ED. However she did note some weakness and inability to elevate her leg which now appears to have resolved. She denies weakness, slurred speech, facial droop, upper extremity paresthesias or weakness. Patient denies history of peripheral arterial disease or deep venous thrombosis. She is not on any anticoagulation. Patient denies chest pain, shortness breath, abdominal pain, nausea, vomiting, blood in her stool. In the ED the left lower extremity appeared cold, dusky and mottled. Emergent CT of the aorta with runoff was performed and the case was discussed with Dr. Galloway who felt patient symptoms may be due to severe vessel vasospasm as patient's mottling improved and pulses were palpable. Patient is currently asymptomatic on my assessment and appears to be back to her baseline. Past Med Surg Social Fam HX - Past Medical History Medical history: arthritis, hyperlipidemia, hypertension, RA, other Additional medical history: osteopenia, insomnia, osteopenia, pre-diabetes. SLEEP APNEA. ANEMIA. CHRONIC INSOMNIA Psychiatric history: no psych history - Past Surgical History Surgical History: cataract, knee replacement, orthopedic, other, other Additional surgical history: shoulder replacement - Social History Smoking Status: Former smoker Smokeless Tobacco Status: No Alcohol use: none Drug use: none - Family History Mother Living Status: Age at : 94 Hx Family Cardiac Disorders: Yes Father Living Status: Hx Family Cardiac Disorders: Yes (mi) Hx Family Endocrine Disorder: Yes (dm) Internal Medicine - H&P: Meds Gabapentin [Neurontin] 600 mg PO HS 12/14/16 [History] Lisinopril [Zestril] 5 mg PO DAILY 12/14/16 [History] Simvastatin [Zocor] 40 mg PO HS 12/26/16 [History] Methotrexate [Otrexup] 15 mg PO FR 12/01/17 [History] PredniSONE [Amari] 5 mg PO DAILY 12/01/17 [History] Calcium Carbonate/Vitamin D3 [Calcium 600 + Vit D Tablet] 1 each PO DAILY 02/12/18 [History] Multivitamin [Multivitamins] 1 each PO DAILY 02/12/18 [History] Acetaminophen [Tylenol] 325 mg PO PRN PRN 03/19/18 [History] Cyanocobalamin (Vitamin B-12) [Vitamin B-12] 1,000 mcg PO DAILY 03/19/18 [History] Folic Acid 1 mg PO BID 03/19/18 [History] Magnesium 250 mg PO DAILY 03/19/18 [History] Allergy/AdvReac Type Severity Reaction Status Date / Time Sulfa (Sulfonamide AdvReac Rash Verified 03/19/18 15:12 Antibiotics) All Systems PM: A 10-system review of systems was performed and is negative for pertinent findings except as documented above in the HPI. - Constitutional Constitutional: no chills, no fever(s), no night sweats - EENT Eyes: no change in vision, no discharge, no pain, no photophobia Ears: no ear discharge, no ear pain, no tinnitus Nose, mouth and throat: no dysphagia, no nasal discharge, no neck pain, no sore throat - Cardiovascular Cardiovascular ROS IM: no chest pain, no diaphoresis, no dyspnea, no lightheadedness, no palpitations, no syncope - Respiratory Respiratory: no cough, no dyspnea, no wheezing, no excessive phlegm production - Gastrointestinal Gastrointestinal: no abdominal pain, no diarrhea, no hematemesis, no hematochezia, no melena, no nausea, no vomiting - Genitourinary Genitourinary: no change in urinary stream, no dysuria, no flank pain, no hematuria - Musculoskeletal Musculoskeletal ROS IM: no numbness, no tingling - Integumentary Integumentary IM: no rash, no unusual bruising - Neurological Neurological ROS: no confusion, no convulsions, no focal weakness, no numbness, no tingling, no tremor(s) - Hematologic/Lymphatic Hematologic/Lymphatic: no easy bruising - Constitutional Vitals: Temp Pulse Resp BP Pulse Ox 98.0 F 84 14 108/70 97 06/05/18 04:55 06/05/18 04:55 06/05/18 04:55 06/05/18 04:55 06/05/18 04:55 Exam: General: Alert and oriented 3 lying in bed in no acute distress Skin:Normal color, no rash, no lesions. HEENT:EOM, pupils equal, round and reactive. Cardiovascular:Normal S1 & S2, no rubs, murmurs or gallops. No JVD. Pulse regular. Lungs:Normal breath sounds, no wheezes or crackles. Abdomen:Soft, non-tender, no rigidity. Extremities: Mild edema of the left lower extremity at the ankle. Pulses palpable bilaterally. Both feet appear to be warm. Neurological:Normal cognition and motor skills. Sensation intact in the lower extremities. Cranial nerves II through XII intact. Muscle strength 4 out of 5 bilaterally in the lower extremities. Pulses:Carotid and radial pulses normal +2. Rest of the physical exam is non contributory Internal Med - H&P Results - Labs CBC & Chem 7: 06/04/18 16:48 06/04/18 16:48 Labs: Short CBC 06/04/18 Range/Units 16:48 WBC 13.9 H (4.3-11.1) K/mcL Hgb 11.9 (11.5-15.4) g/dL Hct 36.6 (35.3-44.9) % Plt Count 193 (140-400) K/mcL Neutrophils # 10.8 H (1.6-8.9) K/mcL BMP 06/04/18 16:48 Sodium 139 Potassium 4.2 Chloride 106 Carbon Dioxide 21 L BUN 26 H Creatinine 1.68 H Glucose 118 H Calcium 10.5 H Cardiac Enzymes 06/04/18 Range/Units 16:48 Troponin I < 0.03 (< 0.04) ng/mL - Impressions ITS Impressions Chest X-Ray 06/04/18 16:39 IMPRESSION: No acute cardiac or pulmonary disease. D/ / Tom Dinero MD / Tom Dinero MD Interpreting Provider: Tom Dinero MD Aorta w/Runoff CTA 06/04/18 16:52 IMPRESSION: The CTA shows no acute arterial abnormality, significant narrowing, aneurysm or dissection. There is decreased arterial enhancement of the mid and distal trifurcation vessels left leg with greater venous structure visualization and moderate fatty infiltration. This may represent cellulitis. Venous insufficiency see also considered. Large cystic lesion at the dome of the liver. D/ / Tom Dinero MD / Tom Dinero MD Interpreting Provider: Tom Dinero MD - Assessment and plan (1) Left leg paresthesias Current Visit: Yes Status: Acute Assessment and plan: Patient presents with left lower extremity paresthesias from the knee down. Patient reports that she could not feel her toes. Sensation seems to have returned is at baseline. A CTA of the aorta with lower extremity runoff was performed which showed decreased enhancement of the mid and distal trifurcation vessels of the left leg. Low suspicion for stroke or TIA. Case was discussed with vascular surgery who suspect that this may be secondary to vasospasm given the intermittent nature of the patient's symptoms. JOSÉ LUIS was normal. -Vascular surgery consult (2) Left hip pain Current Visit: Yes Status: Acute Assessment and plan: Patient presents with left hip pain which appears to be chronic setting of history of rheumatoid arthritis. Pain seems to have resolved. -Continue the patient's prednisone and methotrexate. (3) RUDDY (acute kidney injury) Current Visit: Yes Status: Acute Assessment and plan: Mildly KI with a creatinine of 1.68. Patient's baseline appears to be around 1.10. Patient received fluid bolus in the ED. Continue with gentle hydration at 75 mL an hour for one bag. Reassess creatinine in the morning. (4) Hypertension Current Visit: Yes Status: Acute Assessment and plan: Blood pressure stable. Continue with BEN inhibitor. Qualifiers: Hypertension type: essential hypertension Qualified Code(s): I10 - Essential (primary) hypertension (5) DVT prophylaxis Current Visit: Yes Status: Acute Assessment and plan: Subcutaneous heparin - Time Spent With Patient Total time spent is greater than 50% in coordination of care (as documented) at patient's floor/unit and/or counseling patient:
[2018-06-05] MEDS: Acetaminophen 325 MG TABLET PO PRN ×2 (05:57→17:32)
[2018-06-05 07:28] LABS: Basophils # 0.1 K/mcL (0.0-0.2); Basophils % 0.5 %; Eosinophils # 0.2 K/mcL (0.0-0.6); Eosinophils % 2.2 %; Hematocrit 30.9 % (35.3-44.9); Immature Granulocytes % 1.6 % (0-4); Lymphocytes # 1.8 K/mcL (0.6-4.6); Lymphocytes % 16.4 %; Mean Corpuscular HGB Conc 32.7 g/dL (31.6-35.5); Mean Corpuscular Hemoglobin 33.3 pg (28.0-33.3); Mean Platelet Volume 11.2 fL (9.4-12.4); Monocytes # 0.8 K/mcL (0.0-1.3); Monocytes % 7.7 %; Neutrophils # 7.7 K/mcL (1.6-8.9); Platelet Count 146 K/mcL (140-400); Red Blood Count 3.03 M/mcL (3.82-4.97); Red Cell Distribution Width 16.8 % (11.5-14.5); Segmented Neutrophils % 71.6 %
[2018-06-05 07:31] LABS: Hemoglobin 10.1 g/dL (11.5-15.4)
[2018-06-05 07:36] LABS: Prothrombin Time 11.8 Seconds (9.4-12.1)
[2018-06-05 07:39] LABS: Activated Partial Thrombo Time 26.8 Seconds (26.0-36.0)
[2018-06-05 07:48] LABS: Albumin/Globulin Ratio 1.9 (1.1-2.2); Bilirubin,Total 0.7 mg/dL (0.3-1.0); Calcium 9.4 mg/dL (8.6-10.3); Globulin 2.1 g/dL (2.4-3.5); Potassium 3.6 mEq/L (3.5-5.1); Total Protein 6.1 g/dL (6.4-8.9)
[2018-06-05] MEDS: Cyanocobalamin (B-12) 1,000 MCG TABLET PO SCH (07:55)
[2018-06-05] MEDS: Multivit/Ca/Min/Fe/FA 1 TAB TABLET PO SCH (07:55)
[2018-06-05] MEDS: *HR* Heparin 5,000 UNIT/ML VIAL SQ SCH ×2 (07:55→12:41)
[2018-06-05] MEDS: predniSONE 5 MG TABLET PO SCH (07:56)
[2018-06-05] MEDS: Folic Acid 1 MG TABLET PO SCH ×2 (07:56→21:28)
[2018-06-05] MEDS: Cholecalciferol (D-3) 1,000 UNIT TABLET PO SCH (07:56)
[2018-06-05] MEDS: Magnesium Oxide 400 MG TABLET PO SCH (07:56)
--- NOTE | 2018-06-05 08:53 | Event Note ---
Date of Encounter: 06/05/18 Time of Encounter: 08:53 patient was seen and examined at bedside at bedside. report sthat she is still experiencing pain of the LLE especially when ambulating reports that the LLE is more " flushed than the right VS noted obese, in no acute distress CLTA RRR, s1 and s2 abdomen is obese extremities: FROM of all extremities, left lower extremity with well healed surgical scar in the anterior knee, moving toes, warm, DP pulse is palpable, no erythema noted CTA IMPRESSION: The CTA shows no acute arterial abnormality, significant narrowing, aneurysm or dissection. There is decreased arterial enhancement of the mid and distal trifurcation vessels left leg with greater venous structure visualization and moderate fatty infiltration. This may represent cellulitis. Venous insufficiency see also considered. Large cystic lesion at the dome of the liver. A/P LLE ? cellulitis vs DVT - ruled out arterial disease vascular surgery consulted - will follow recommendations simvastatin changed to lipitor stopped lisinopril and started amlodipine started cefrtiaxone for cellulitis DVT study
[2018-06-05] MEDS ORDERED: NON-FORMULARY MEDICATION 1 EACH EACH (Calcium Carbonate/Vitamin D3 [Calcium 600 + Vit D Ta PO SCH (09:00)
[2018-06-05] MEDS: 0.9 % Sodium Chloride 1,000 ML IVC SCH (11:58)
[2018-06-05] MEDS ORDERED: cefTRIAXone 2,000 MG in 0.9 % Sodium Chloride Mini Bag 100 ML IVPB SCH (13:00)
--- NOTE | 2018-06-05 17:59 | Electrocardiograph Report ---
[place] [id number] Test Date: 2018-06-04 Pat Name: Lorrie Purcell Department: EXAM12 Room: 3B44 Gender: F Office Clerk Assistant: : 1945 Requested By: Madie Sheehan Order Number: [id number] Reading MD: Rosy Larose Measurements Intervals [place] Rate: 64 P: 54 IN: 176 QRS: -25 QRSD: 97 T: 37 QT: 403 QTc: 416 Interpretive Statements Sinus rhythm Borderline left axis deviation Electronically Signed On 06-05-2018 17:57:52 EST by Rosy Larose
[2018-06-05] MEDS: Gabapentin 300 MG CAPSULE PO SCH (21:28)
[2018-06-05] MEDS: *HR* Enoxaparin 100 MG/ML SYRINGE SQ SCH (21:28)
[2018-06-06] MEDS: Acetaminophen 325 MG TABLET PO PRN (05:51)
[2018-06-06] MEDS: *HR* Enoxaparin 100 MG/ML SYRINGE SQ SCH (05:51)
[2018-06-06 06:50] LABS: Hematocrit 30.3 % (35.3-44.9); Mean Corpuscular Hemoglobin 33.2 pg (28.0-33.3); Mean Corpuscular Volume 100.7 fL (83.0-100.0); Platelet Count 143 K/mcL (140-400); Red Blood Count 3.01 M/mcL (3.82-4.97); Red Cell Distribution Width 16.9 % (11.5-14.5)
[2018-06-06 06:58] LABS: INR 1.3; Prothrombin Time 14.1 Seconds (9.4-12.1)
[2018-06-06 07:14] LABS: Calcium 9.5 mg/dL (8.6-10.3); Potassium 3.8 mEq/L (3.5-5.1)
[2018-06-06] MEDS: Cholecalciferol (D-3) 1,000 UNIT TABLET PO SCH (08:57)
[2018-06-06] MEDS: predniSONE 5 MG TABLET PO SCH (08:57)
[2018-06-06] MEDS: Cyanocobalamin (B-12) 1,000 MCG TABLET PO SCH (08:57)
[2018-06-06] MEDS: Folic Acid 1 MG TABLET PO SCH ×2 (08:57→20:39)
[2018-06-06] MEDS: Multivit/Ca/Min/Fe/FA 1 TAB TABLET PO SCH (08:57)
[2018-06-06] MEDS: Magnesium Oxide 400 MG TABLET PO SCH (08:57)
[2018-06-06] MEDS ORDERED: amLODIPine 5 MG TABLET PO SCH (09:00)
--- NOTE | 2018-06-06 11:10 | Internal Med Progress Note ---
Hospitalist Progress Note - Encounter Date of Encounter: 06/06/18 Time of Encounter: 11:06 - Subjective Interval History: Patient seen and examined in the room, she denies left leg pain or numbness. - Exam Vitals: Temp Pulse Resp BP Pulse Ox 98.2 F 84 18 103/65 94 06/06/18 08:08 06/06/18 08:08 06/06/18 08:08 06/06/18 08:08 06/06/18 08:08 Exam: PHYSICAL EXAMINATION: GENERAL APPEARANCE: The patient is alert, oriented and in no acute distress. HEENT: Head is normocephalic. The sinuses are nontender. Pupils are equal and reactive. The nares are patent. Oropharynx clear without lesions. NECK: Supple without lymphadenopathy. HEART: Regular rate and rhythm. LUNGS: No crackles or wheezes are heard. ABDOMEN: Soft, nontender, nondistended with good bowel sounds heard. Inguinal area is normal. EXTREMITIES: left leg slightly swollen than right side. NEUROLOGICAL: Gross nonfocal. SKIN: Warm and dry without any rash. - Assessment and Plan (1) Left leg DVT Current Visit: Yes Status: Acute Assessment and Plan: 73-year-old female with medical history of hypertension presented with left sided leg pain and the numbness. CTA of left extremity showed decreased attenuation of the left leg arteries. Venous Doppler showed diffuse DVT from iliac to tibial veins. She was started on Lovenox twice a day at therapeutic dose. Vascular surgery was consulted, patient currently debating on which type of oral agent she should take after discharge. (2) RUDDY (acute kidney injury) Current Visit: Yes Status: Resolved (3) Hypertension Current Visit: Yes Status: Acute Assessment and Plan: Blood pressure stable. Continue with BEN inhibitor. (4) DVT prophylaxis Current Visit: Yes Status: Acute Assessment and Plan: Subcutaneous heparin - Time Spent with Patient Total time spent is greater than 50% in coordination of care (as documented) at patient's floor/unit and/or counseling patient: Greater than 35 minutes Plan of Care Discussed with: patient Internal Medicine: Result - Labs CBC & Chem 7: 06/06/18 06:06 06/06/18 06:06 Labs: Short CBC 06/06/18 Range/Units 06:06 WBC 12.6 H (4.3-11.1) K/mcL Hgb 10.0 L (11.5-15.4) g/dL Hct 30.3 L (35.3-44.9) % Plt Count 143 (140-400) K/mcL BMP 06/06/18 06:06 Sodium 139 Potassium 3.8 Chloride 107 Carbon Dioxide 20 L BUN 20 Creatinine 1.20 Glucose 129 H Calcium 9.5 - ABG Interpretation ABG results: PT/INR, D-dimer PT 14.1 Seconds (9.4-12.1) H 06/06/18 06:06 Consult Discharge Plan - Plan Referrals: Damaris Conteh MD [Primary Care Provider] - (Appointment has been requested. ) (1) Left leg DVT Qualifiers: Affected thrombotic vein of extremity: iliac Chronicity: acute Qualified Code(s): I82.422 - Acute embolism and thrombosis of left iliac vein (3) Hypertension Qualifiers: Hypertension type: essential hypertension Qualified Code(s): I10 - Essential (primary) hypertension
--- NOTE | 2018-06-06 11:51 | Vascular/Endovasc Consult Note ---
Date of Encounter: 06/06/18 Time of Encounter: 09:15 Assessment and Plan (1) Left leg DVT Current Visit: Yes Status: Acute The pathophysiology and natural history of deep vein thrombosis was discussed the patient and all questions were answered. The patient has a left iliac through tibial DVT. She is left lower extremity edema. Her compartments are soft. Her pedal pulses are present. She has no signs of phlegmasia. She reports significant improvement with anticoagulation. Oral anticoagulation is recommended. The patient was advised to elevate her leg when seated. The patient follow up in vascular clinic in 1-2 weeks for further evaluation. There is no acute indication for venous mechanical thrombectomy at this time. However, persistent or progressive symptoms may require venous thrombectomy. Qualifiers: Affected thrombotic vein of extremity: iliac Chronicity: acute Qualified Code(s): I82.422 - Acute embolism and thrombosis of left iliac vein - History of Present Illness Consult date: 06/06/18 Requesting physician: Dewey Acosta Consult reason: Deep vein thrombosis Chief complaint: Left leg pain and swelling History of present illness: Ms. Purcell is a 73 year old female Past Med Surg Social Fam HX - Past Medical History Medical history: arthritis, hyperlipidemia, hypertension, RA, other Additional medical history: osteopenia, insomnia, osteopenia, pre-diabetes. SLEEP APNEA. ANEMIA. CHRONIC INSOMNIA Psychiatric history: no psych history - Past Surgical History Surgical History: cataract, knee replacement, orthopedic, other, other Additional surgical history: shoulder replacement - Social History Smoking Status: Former smoker Smokeless Tobacco Status: No Alcohol use: none Drug use: none - Family History Mother Living Status: Age at : 94 Hx Family Cardiac Disorders: Yes Father Living Status: Hx Family Cardiac Disorders: Yes (mi) Hx Family Endocrine Disorder: Yes (dm) Medications and Allergies Gabapentin [Neurontin] 600 mg PO HS 12/14/16 [History] Lisinopril [Zestril] 5 mg PO DAILY 12/14/16 [History] Simvastatin [Zocor] 40 mg PO HS 12/26/16 [History] Methotrexate [Otrexup] 15 mg PO FR 12/01/17 [History] PredniSONE [Amari] 5 mg PO DAILY 12/01/17 [History] Calcium Carbonate/Vitamin D3 [Calcium 600 + Vit D Tablet] 1 each PO DAILY [History] Multivitamin [Multivitamins] 1 each PO DAILY 02/12/18 [History] Acetaminophen [Tylenol] 325 mg PO PRN PRN 03/19/18 [History] Cyanocobalamin (Vitamin B-12) [Vitamin B-12] 1,000 mcg PO DAILY 03/19/18 [History] Folic Acid 1 mg PO BID 03/19/18 [History] Magnesium 250 mg PO DAILY 03/19/18 [History] Allergy/AdvReac Type Severity Reaction Status Date / Time Sulfa (Sulfonamide AdvReac Rash Verified 03/19/18 15:12 Antibiotics) All Systems Review: The remainder of the systems were reviewed and are negative Exam Vital Signs, Last 4 Hours Temp Pulse Resp BP Pulse Ox 06/06/18 11:39 98.4 F 84 18 104/70 95 06/06/18 08:08 98.2 F 84 18 103/65 94 Consult Discharge Plan - Plan Referrals: Damaris Conteh MD [Primary Care Provider] - (Appointment has been requested. )
[2018-06-06] MEDS ORDERED: Warfarin perPT PO PRN (18:00)
[2018-06-06] MEDS: Apixaban 5 MG TABLET PO SCH (20:39)
[2018-06-06] MEDS: Gabapentin 300 MG CAPSULE PO SCH (20:40)
[2018-06-07 06:25] LABS: Hematocrit 30.2 % (35.3-44.9); Hemoglobin 9.7 g/dL (11.5-15.4); Mean Corpuscular HGB Conc 32.1 g/dL (31.6-35.5); Mean Corpuscular Hemoglobin 32.9 pg (28.0-33.3); Mean Corpuscular Volume 102.4 fL (83.0-100.0); Mean Platelet Volume 11.2 fL (9.4-12.4); Platelet Count 142 K/mcL (140-400); Red Blood Count 2.95 M/mcL (3.82-4.97); Red Cell Distribution Width 16.6 % (11.5-14.5)
[2018-06-07 07:16] LABS: BUN/Creatinine Ratio 20 (6-26); Blood Urea Nitrogen 20 mg/dL (8-23); Calcium 9.2 mg/dL (8.6-10.3); Carbon Dioxide 22 mEq/L (23-29); Chloride 109 mEq/L (98-107); Glucose 92 mg/dL (70-105); Osmolality,Calculated 290 (280-300); Potassium 3.9 mEq/L (3.5-5.1); Sodium 139 mEq/L (136-145); eGFR For Non-African Americans 54 (> 60)
[2018-06-07] MEDS: Folic Acid 1 MG TABLET PO SCH (08:15)
[2018-06-07] MEDS: Magnesium Oxide 400 MG TABLET PO SCH (08:15)
[2018-06-07] MEDS: predniSONE 5 MG TABLET PO SCH (08:15)
[2018-06-07] MEDS: Cholecalciferol (D-3) 1,000 UNIT TABLET PO SCH (08:15)
[2018-06-07] MEDS: Cyanocobalamin (B-12) 1,000 MCG TABLET PO SCH (08:15)
[2018-06-07] MEDS: Multivit/Ca/Min/Fe/FA 1 TAB TABLET PO SCH (08:15)
[2018-06-07] MEDS: Apixaban 5 MG TABLET PO SCH (08:16)
[2018-06-07 15:41] VITALS: BP 129/74
--- NOTE | 2018-06-07 16:32 | Discharge Summary ---
Date of Encounter: 06/07/18 Time of Encounter: 16:38 - Discharge Diagnosis (1) RUDDY (acute kidney injury) Priority: Primary Status: Resolved Assessment and Plan: Mildly KI with a creatinine of 1.68. Patient's baseline appears to be around 1.10. Patient received fluid bolus in the ED. Continue with gentle hydration at 75 mL an hour for one bag. Reassess creatinine in the morning. (2) DVT prophylaxis Priority: Secondary Status: Resolved Assessment and Plan: Subcutaneous heparin (3) Hypertension Priority: Secondary Status: Acute Qualifiers: Hypertension type: essential hypertension Qualified Code(s): I10 - Essential (primary) hypertension (4) Left leg DVT Priority: Primary Status: Acute Qualifiers: Affected thrombotic vein of extremity: iliac Chronicity: acute Qualified Code(s): I82.422 - Acute embolism and thrombosis of left iliac vein (5) Left leg paresthesias Priority: Primary Status: Resolved Hospital course: Ms. Purcell is a 73 year old female xam: PHYSICAL EXAMINATION: GENERAL APPEARANCE: The patient is alert, oriented and in no acute distress. HEENT: Head is normocephalic. The sinuses are nontender. Pupils are equal and reactive. The nares are patent. Oropharynx clear without lesions. NECK: Supple without lymphadenopathy. HEART: Regular rate and rhythm. LUNGS: No crackles or wheezes are heard. ABDOMEN: Soft, nontender, nondistended with good bowel sounds heard. Inguinal area is normal. EXTREMITIES: left leg slightly swollen than right side. NEUROLOGICAL: Gross nonfocal. SKIN: Warm and dry without any rash. ssessment and Plan (1) Left leg DVT Current Visit: Yes Status: Acute Assessment and Plan: 73-year-old female with medical history of hypertension presented with left sided leg pain and the numbness. CTA of left extremity showed decreased attenuation of the left leg arteries. Venous Doppler showed diffuse DVT from iliac to tibial veins. She was started on Lovenox twice a day at therapeutic dose. Vascular surgery was consulted, patient currently debating on which type of oral agent she should take after discharge. (2) RUDDY (acute kidney injury) Current Visit: Yes Status: Resolved (3) Hypertension Current Visit: Yes Status: Acute Assessment and Plan: Blood pressure stable. Continue with BEN inhibitor. (4) DVT prophylaxis Current Visit: Yes Status: Acute Assessment and Plan: Subcutaneous heparin Discharge discussed with: patient - Time Spent with Patient Total time spent providing and/or coordinating discharge services: Consult Discharge Plan - Plan Referrals: Damaris Conteh MD [Primary Care Provider] - (Appointment has been requested. ) - Discharge Medications Home Medications: Gabapentin [Neurontin] 600 mg PO HS 12/14/16 [History] Lisinopril [Zestril] 5 mg PO DAILY 12/14/16 [History] Simvastatin [Zocor] 40 mg PO HS 12/26/16 [History] Methotrexate [Otrexup] 15 mg PO FR 12/01/17 [History] PredniSONE [Amari] 5 mg PO DAILY 12/01/17 [History] Calcium Carbonate/Vitamin D3 [Calcium 600 + Vit D Tablet] 1 each PO DAILY 02/12/18 [History] Multivitamin [Multivitamins] 1 each PO DAILY 02/12/18 [History] Acetaminophen [Tylenol] 325 mg PO PRN PRN 03/19/18 [History] Cyanocobalamin (Vitamin B-12) [Vitamin B-12] 1,000 mcg PO DAILY 03/19/18 [History] Folic Acid 1 mg PO BID 03/19/18 [History] Magnesium 250 mg PO DAILY 03/19/18 [History] Allergies/Adverse Reactions: Allergy/AdvReac Type Severity Reaction Status Date / Time Sulfa (Sulfonamide AdvReac Rash Verified 03/19/18 15:12 Antibiotics) Date of admission: 06/06/18 15:57 Primary care physician: Damaris Conteh Consults: 06/04/18 21:43 Consult to Vascular Surgery [CONS] Routine Consulting Provider: Vascular Surgery [facility] Reason for Consult: Left lower extremity numbness Call Completed: Yes - Constitutional Vitals: Temp Pulse Resp BP Pulse Ox 98.0 F 70 18 129/74 94 06/07/18 15:39 06/07/18 15:39 06/07/18 15:39 06/07/18 15:39 06/07/18 15:39 Exam: Exam: PHYSICAL EXAMINATION: GENERAL APPEARANCE: The patient is alert, oriented and in no acute distress. HEENT: Head is normocephalic. The sinuses are nontender. Pupils are equal and reactive. The nares are patent. Oropharynx clear without lesions. NECK: Supple without lymphadenopathy. HEART: Regular rate and rhythm. LUNGS: No crackles or wheezes are heard. ABDOMEN: Soft, nontender, nondistended with good bowel sounds heard. Inguinal area is normal. EXTREMITIES: left leg slightly swollen than right side. NEUROLOGICAL: Gross nonfocal. SKIN: Warm and dry without any rash. - Patient Status Disposition: Home, Self-Care Condition: Good Overall status at discharge: patient is progressing back to baseline - Discharge Instructions Instructions: Deep Venous Thrombosis (DC) Follow Up With: Jorje Galloway MD [Partnered Physician] - 06/19/18 1:50 pm Damaris Conteh MD [Primary Care Provider] - 06/20/18 11:15 am ()
[2018-06-09] MEDS ORDERED: *HR* Methotrexate 2.5 MG TABLET PO SCH (09:00)
== END 2018-06-07 17:06 | disposition home or self-care (01) | DRG 300 ==
LOC: 3BNU 16:30 → EMEROOARM 16:30 → 3BNU 20:19
PROVIDERS: ADMIT Internal Medicine; ATTEND Internal Medicine

== ENCOUNTER 2019-01-16 06:03 | Inpatient (IN) ==
[2019-01-16] MEDS ORDERED: Ringers Solution, Lactated 1,000 ML IVC SCH ×2 (06:30→10:49)
[2019-01-16] MEDS ORDERED: Acetaminophen IV 1,000 MG/100 ML INFUS..BTL IVPB ONE (07:01)
[2019-01-16] MEDS ORDERED: Ondansetron 4 MG/2 ML VIAL IVP ONE (07:01)
[2019-01-16] MEDS ORDERED: Famotidine 20 MG/2 ML VIAL IVP ONE (07:01)
[2019-01-16] MEDS ORDERED: Albuterol 2.5 MG/3 ML NEBULIZER IH ONE (07:01)
[2019-01-16] MEDS ORDERED: *HR* Labetalol 20 MG/4 ML SYRINGE IVP PRN (07:01)
[2019-01-16] MEDS ORDERED: *HR* HYDROmorphone (PF) 1 MG/ML SYRINGE IVP PRN (07:01)
[2019-01-16] MEDS ORDERED: *HR* Promethazine 25 MG/ML VIAL IVP PRN (07:01)
[2019-01-16] MEDS ORDERED: *HR* OxyCODONE Immed Rel 5 MG TABLET PO PRN ×2 (07:01→10:49)
[2019-01-16] MEDS ORDERED: Ropivacaine/PF 0.5% 30 ML VIAL ONE (07:23)
[2019-01-16] MEDS ORDERED: ROPIVACAINE/PF/NS 0.25% 1 EACH SYRINGE INTRAART ONE (07:23)
[2019-01-16] MEDS ORDERED: Ethanol\\Acetic Acid\\Na Ace\\Ben 1,000 ML IRRIG.SOLN IR ONE (07:28)
[2019-01-16] MEDS ORDERED: CeFAZolin Syr 2,000MG/20 ML 2,000 MG/20 ML SYRINGE IVPB ONE (07:59)
[2019-01-16] MEDS ORDERED: *HR* Midazolam HCl 2 MG/2 ML VIAL ONE (10:23)
[2019-01-16] MEDS ORDERED: *HR* Rocuronium Bromide 50 MG/5 ML VIAL ONE (10:23)
[2019-01-16] MEDS ORDERED: *HR* Succinylcholine 200 MG/10 ML VIAL IVP ONE (10:23)
[2019-01-16] MEDS ORDERED: Lidocaine -MPF 2% 2 ML VIAL ONE (10:23)
[2019-01-16] MEDS ORDERED: Tranexamic Acid 1,000 MG/10 ML VIAL ONE (10:23)
[2019-01-16] MEDS ORDERED: Ondansetron 4 MG/2 ML VIAL ONE (10:23)
[2019-01-16] MEDS ORDERED: *HR* Propofol 200 MG/20 ML VIAL IVP ONE (10:23)
[2019-01-16] MEDS ORDERED: *HR* FentaNYL (PF) 100 MCG/2 ML VIAL ONE (10:23)
[2019-01-16] MEDS ORDERED: *HR* PHENYLEPHRINE 1,000 MCG/10 ML SYRINGE IVP ONE (10:23)
[2019-01-16] MEDS ORDERED: MOM Conc 10 ML UD.LIQ PO PRN (10:49)
[2019-01-16] MEDS ORDERED: Temazepam 15 MG CAPSULE PO PRN (10:49)
[2019-01-16] MEDS ORDERED: Ondansetron 4 MG/2 ML VIAL IVP PRN (10:49)
[2019-01-16] MEDS ORDERED: *HR* OxyCODONE/APAP 5/325 TABLET PO PRN (10:49)
[2019-01-16] MEDS ORDERED: Sennosides 8.6 MG TABLET PO PRN (10:49)
[2019-01-16] MEDS: *HR* Enoxaparin 30 MG/0.3 ML SYRINGE SQ SCH ×2 (12:54→14:24)
[2019-01-16 14:30] VITALS: BP 128/71
[2019-01-16] MEDS ORDERED: Gabapentin 300 MG CAPSULE PO SCH (21:00)
[2019-01-17] MEDS ORDERED: Folic Acid 1 MG TABLET PO SCH (09:00)
[2019-01-17] MEDS ORDERED: Multivit/Ca/Min/Fe/FA 1 TAB TABLET PO SCH (09:00)
[2019-01-17] MEDS ORDERED: Cholecalciferol (D-3) 1,000 UNIT (25MCG) TABLET PO SCH (09:00)
[2019-01-17] MEDS ORDERED: Vitamin B Complex/Vit C/Vit E 1 EACH TABLET PO SCH (09:00)
[2019-01-17] MEDS ORDERED: predniSONE 5 MG TABLET PO SCH (09:00)
== END 2019-01-16 17:05 | disposition home or self-care (01) | DRG 483 ==
LOC: SAMDAY 06:03 → 3NENU 10:45
PROVIDERS: ADMIT Orthopaedic Surgery Sports Medicine; ATTEND Orthopaedic Surgery Sports Medicine

== ENCOUNTER 2019-10-15 23:36 | Observation (INO) ==
[2019-10-16 01:38] LABS: Basophils % 0.2 %; Eosinophils # 0.2 K/mcL (0.0-0.6); Eosinophils % 1.7 %; Hematocrit 34.7 % (35.3-44.9); Hemoglobin 11.6 g/dL (11.5-15.4); Immature Granulocytes % 0.5 % (0-4); Lymphocytes # 1.2 K/mcL (0.6-4.6); Lymphocytes % 9.6 %; Mean Corpuscular HGB Conc 33.4 g/dL (31.6-35.5); Mean Corpuscular Hemoglobin 33.2 pg (28.0-33.3); Mean Corpuscular Volume 99.4 fL (83.0-100.0); Mean Platelet Volume 11.4 fL (9.4-12.4); Monocytes # 1.1 K/mcL (0.0-1.3); Monocytes % 8.6 %; Neutrophils # 10.1 K/mcL (1.6-8.9); Platelet Count 179 K/mcL (140-400); Red Blood Count 3.49 M/mcL (3.82-4.97); Red Cell Distribution Width 16.8 % (11.5-14.5); Segmented Neutrophils % 79.4 %; White Blood Count 12.8 K/mcL (4.3-11.1)
[2019-10-16 01:47] LABS: Prothrombin Time 11.2 Seconds (9.4-12.1)
[2019-10-16 01:59] LABS: Alanine Aminotransferase 46 Units/L (7-52); Albumin 4.6 g/dL (3.5-5.7); Albumin/Globulin Ratio 1.7 (1.1-2.2); Alkaline Phosphatase 69 Units/L (34-104); Aspartate Amino Transferase 45 Units/L (13-39); BUN/Creatinine Ratio 15 (6-26); Bilirubin,Total 0.6 mg/dL (0.3-1.0); Blood Urea Nitrogen 20 mg/dL (8-23); Calcium 10.4 mg/dL (8.6-10.3); Carbon Dioxide 20 mEq/L (23-29); Chloride 105 mEq/L (98-107); Globulin 2.7 g/dL (2.4-3.5); Glucose 125 mg/dL (70-105); Magnesium 2.1 mg/dL (1.6-2.6); Osmolality,Calculated 292 (280-300); Potassium 3.5 mEq/L (3.5-5.1); Sodium 139 mEq/L (136-145); Total Protein 7.3 g/dL (6.4-8.9); Troponin I < 0.03 ng/mL (< 0.04); eGFR For African Americans 46 (> 60); eGFR For Non-African Americans 38 (> 60)
[2019-10-16] MEDS ORDERED: Naloxone 0.4 MG/ML INJ IVP PRN (08:16)
[2019-10-16] MEDS ORDERED: *HR* HYDROcodone/Acet 5/325 mg TABLET PO PRN (08:16)
[2019-10-16] MEDS ORDERED: Ringers Solution, Lactated 1,000 ML IVC SCH (08:30)
[2019-10-16] MEDS: lisinopriL 5 MG TABLET PO SCH (12:10)
[2019-10-16] MEDS: Acetaminophen 325 MG TABLET PO PRN ×2 (12:10→22:03)
[2019-10-16] MEDS: predniSONE 1 MG TABLET PO SCH (12:11)
[2019-10-16] MEDS: *HR* Heparin 5,000 UNIT/ML VIAL SQ SCH ×2 (14:43→22:03)
[2019-10-16] MEDS: Gabapentin 300 MG CAPSULE PO SCH (22:03)
[2019-10-17] MEDS: *HR* Heparin 5,000 UNIT/ML VIAL SQ SCH (05:27)
[2019-10-17 06:05] LABS: Basophils % 0.2 %; Eosinophils # 0.3 K/mcL (0.0-0.6); Eosinophils % 4.7 %; Hematocrit 33.4 % (35.3-44.9); Hemoglobin 10.6 g/dL (11.5-15.4); Immature Granulocytes % 0.3 % (0-4); Lymphocytes % 32.5 %; Mean Corpuscular HGB Conc 31.7 g/dL (31.6-35.5); Mean Corpuscular Hemoglobin 32.6 pg (28.0-33.3); Mean Corpuscular Volume 102.8 fL (83.0-100.0); Mean Platelet Volume 11.3 fL (9.4-12.4); Monocytes # 0.4 K/mcL (0.0-1.3); Neutrophils # 3.3 K/mcL (1.6-8.9); Platelet Count 180 K/mcL (140-400); Red Blood Count 3.25 M/mcL (3.82-4.97); Red Cell Distribution Width 16.4 % (11.5-14.5); Segmented Neutrophils % 55.3 %
[2019-10-17 06:33] LABS: Calcium 9.3 mg/dL (8.6-10.3)
[2019-10-17] MEDS ORDERED: Folic Acid 1 MG TABLET PO SCH (09:00)
[2019-10-17] MEDS: Gabapentin 300 MG CAPSULE PO SCH (09:12)
[2019-10-17] MEDS: predniSONE 1 MG TABLET PO SCH (09:13)
[2019-10-17] MEDS: lisinopriL 5 MG TABLET PO SCH (09:13)
[2019-10-17] MEDS: Acetaminophen 325 MG TABLET PO PRN (09:16)
[2019-10-17 11:11] VITALS: BP 107/76
[2019-10-21] MEDS ORDERED: *HR* Methotrexate 2.5 MG TABLET PO SCH (11:31)
== END 2019-10-17 14:27 | disposition home or self-care (01) ==
LOC: EMEROOARM 23:36 → 3ANU 23:36 → SUATTDRO 10-16 03:56 → 3ANU 10-16 04:47
PROVIDERS: ADMIT Internal Medicine; ATTEND Family Medicine